=== PATIENT | male | born 1990 | race American Indian/Alaskan Native ===

== ENCOUNTER 2020-03-28 00:04 | Emergency (ER) | payer SELFPAY ==
--- NOTE | 2020-03-28 01:53 | XRay Report ---
CHEST PA AND LATERAL VIEWS INDICATION: Hematemesis. COMPARISON: None. FINDINGS: Support devices: None. Heart: Within normal limits. Lungs/Pleura: No acute pulmonary or pleural findings. IMPRESSION: 1. No acute findings. Signer Name: Isauro Camacho MD Signed: 03/28/2020 1:48 AM Workstation Name: [id number]
[2020-03-28] MEDS ORDERED: HALOPERIDOL LACTATE 5 MG/1 ML INJ IM ONE (02:15)
[2020-03-28] MEDS ORDERED: FAMOTIDINE 20 MG/2 ML INJ IV ONE (02:15)
[2020-03-28] MEDS ORDERED: LORazepam 2 MG/ML VIAL IV PRN ×3 (02:15)
[2020-03-28] MEDS ORDERED: diazePAM 10 MG/2 ML SYRINGE IV ONE (02:15)
--- NOTE | 2020-03-28 02:22 | Emergency Department Report ---
ED General Adult HPI - General Chief complaint: GI Bleed Stated complaint: WEAKNESS PUI?: No Time Seen by Provider: 03/28/20 02:05 Source: patient, EMS ( EMS documentation not available at time of chart dictation ), RN notes reviewed Mode of arrival: Stretcher Limitations: No Limitations - History of Present Illness Initial comments: Patient is a 29-year-old gentleman He has a history of alcoholism and alcohol use. He does not have a local primary care doctor. He presents to the ER with rapid heartbeat, racing thoughts, vomiting blood, diffuse abdominal cramping and body pain. His last alcoholic drink was 4 days ago. He has withdrawn from alcohol in the past. He is not homicidal or suicidal. At the moment, he is anxious and nauseous. He denies rectal bleeding. He denies focal extremity weakness and numbness. He endorses body pain. At the moment his symptoms are constant, do not radiate anywhere, and he does not describe exacerbating or relieving factors -: Gradual Location: abdomen, left, right, upper extremity, lower extremity Quality: aching Consistency: constant Improves with: rest Worsens with: movement - Related Data Previous Rx's Medication Instructions Recorded Last Taken Type Multivitamin with Folic Acid [[facility] 400 mcg PO QDAY #30 tablet 03/28/20 Unknown Rx One Daily Essential Tablet] Ondansetron [Zofran Odt] 4 mg PO Q8HR PRN #20 tab.rapdis 03/28/20 Unknown Rx Pantoprazole [Protonix TAB] 20 mg PO QDAY #30 tablet. 03/28/20 Unknown Rx Potassium Chloride 20 meq PO QDAY #14 packet 03/28/20 Unknown Rx chlordiazePOXIDE [Librium] 25 mg PO Q6H PRN #25 capsule 03/28/20 Unknown Rx Allergies Allergy/AdvReac Type Severity Reaction Status Date / Time No Known Allergies Allergy Unverified 03/28/20 01:17 ED Review of Systems ROS: Stated complaint: WEAKNESS Other details as noted in HPI Constitutional: denies: fever Eyes: denies: eye discharge ENT: denies: epistaxis Respiratory: denies: cough Cardiovascular: palpitations. denies: chest pain Gastrointestinal: nausea, vomiting, hematemesis. denies: melena, hematochezia Genitourinary: denies: dysuria Musculoskeletal: arthralgia, myalgia Psychiatric: anxiety. denies: homicidal thoughts, suicidal thoughts ED Past Medical Hx - Past Medical History Previous Medical History?: No - Surgical History Past Surgical History?: No - Social History Smoking Status: Current Every Day Smoker Substance Use Type: Alcohol - Medications Home Medications: Home Medications Medication Instructions Recorded Confirmed Last Taken Type Multivitamin with Folic Acid [[facility] 400 mcg PO QDAY #30 tablet 03/28/20 Unknown Rx One Daily Essential Tablet] Ondansetron [Zofran Odt] 4 mg PO Q8HR PRN #20 tab.rapdis 03/28/20 Unknown Rx Pantoprazole [Protonix TAB] 20 mg PO QDAY #30 tablet.dr 03/28/20 Unknown Rx Potassium Chloride 20 meq PO QDAY #14 packet 03/28/20 Unknown Rx chlordiazePOXIDE [Librium] 25 mg PO Q6H PRN #25 capsule 03/28/20 Unknown Rx ED Physical Exam - General Limitations: No Limitations General appearance: alert, anxious, in distress - Head Head exam: Present: atraumatic, normocephalic - Eye Eye exam: Present: normal appearance, EOMI - ENT ENT exam: Present: normal exam, mucous membranes dry, normal external ear exam, other (Tongue fasciculations noted) - Neck Neck exam: Present: normal inspection. Absent: tenderness, meningismus - Respiratory Respiratory exam: Present: normal lung sounds bilaterally. Absent: respiratory distress, wheezes, rales, rhonchi, stridor - Cardiovascular Cardiovascular Exam: Present: normal rhythm, tachycardia. Absent: systolic murmur, diastolic murmur, rubs, gallop - GI/Abdominal GI/Abdominal exam: Present: soft, normal bowel sounds. Absent: distended, tenderness, guarding, rebound, rigid, pulsatile mass - Rectal Rectal exam: Present: normal inspection, heme (-) stool, other (Chaperoned by nurse Guerline Rosario). Absent: heme (+) stool, black stool, bloody stool, fecal impaction, hemorrhoids, mass, tenderness, prostate tenderness, prostate enlargement - Extremities Exam Extremities exam: Present: normal inspection, full ROM, other (2+ pulses noted in the bilateral upper and lower extremities. There is no palpable cord. negative Homans sign. Muscular compartments are soft. The pelvis is stable.). Absent: pedal edema, calf tenderness - Back Exam Back exam: Present: normal inspection, full ROM. Absent: tenderness, CVA tenderness (R), CVA tenderness (L), paraspinal tenderness, vertebral tenderness - Neurological Exam Neurological exam: Present: alert, oriented X3, normal gait, other (No facial droop. Tongue midline. Extraocular movements intact bilaterally. Facial sensation intact to light touch in V1, V2, V3 distribution bilaterally. 5 and a 5 strength in 4 extremities. Sensation intact to light touch in 4 extremities.). Absent: motor sensory deficit - Psychiatric Psychiatric exam: Present: agitated, anxious. Absent: homicidal ideation, suicidal ideation - Skin Skin exam: Present: warm, dry, intact, normal color. Absent: rash ED Course Vital Signs 03/28/20 03/28/20 03/28/20 00:37 02:12 02:15 Temperature 99.0 F Pulse Rate 132 H 137 H 127 H Respiratory 18 20 21 Rate Blood Pressure 188/114 171/90 168/106 Blood Pressure [Left] O2 Sat by Pulse 99 98 98 Oximetry 03/28/20 03/28/20 03/28/20 02:30 02:45 03:04 Temperature Pulse Rate 125 H 124 H Respiratory 19 20 20 Rate Blood Pressure 145/99 151/104 Blood Pressure [Left] O2 Sat by Pulse 99 99 Oximetry 03/28/20 03/28/20 03/28/20 03:10 03:16 03:30 Temperature Pulse Rate 92 H Respiratory 18 Rate Blood Pressure 171/90 171/90 171/90 Blood Pressure [Left] O2 Sat by Pulse 99 99 98 Oximetry 03/28/20 03/28/20 03/28/20 03:45 04:00 04:08 Temperature Pulse Rate 90 87 Respiratory 19 19 18 Rate Blood Pressure 137/85 125/78 Blood Pressure 125/78 [Left] O2 Sat by Pulse 98 98 Oximetry 03/28/20 03/28/20 03/28/20 04:15 04:30 04:45 Temperature Pulse Rate 86 88 91 H Respiratory 19 20 20 Rate Blood Pressure 138/89 125/85 126/89 Blood Pressure [Left] O2 Sat by Pulse Oximetry 03/28/20 03/28/20 03/28/20 05:00 05:15 05:30 Temperature Pulse Rate 89 86 80 Respiratory 19 17 15 Rate Blood Pressure 123/84 128/84 121/77 Blood Pressure [Left] O2 Sat by Pulse Oximetry 03/28/20 03/28/20 03/28/20 05:45 06:00 06:15 Temperature Pulse Rate 87 88 90 Respiratory 18 18 14 Rate Blood Pressure 120/77 117/80 127/86 Blood Pressure [Left] O2 Sat by Pulse Oximetry 03/28/20 03/28/20 03/28/20 06:30 06:45 07:00 Temperature Pulse Rate 82 81 81 Respiratory 18 16 18 Rate Blood Pressure 117/81 116/79 114/79 Blood Pressure [Left] O2 Sat by Pulse Oximetry 03/28/20 03/28/20 03/28/20 07:15 07:30 07:46 Temperature Pulse Rate 82 82 83 Respiratory 15 17 17 Rate Blood Pressure 117/81 122/78 122/78 Blood Pressure [Left] O2 Sat by Pulse Oximetry 03/28/20 03/28/20 03/28/20 08:00 08:16 08:30 Temperature Pulse Rate 97 H 80 75 Respiratory 19 18 16 Rate Blood Pressure 125/82 125/82 111/73 Blood Pressure [Left] O2 Sat by Pulse Oximetry 03/28/20 03/28/20 03/28/20 08:46 09:00 09:16 Temperature Pulse Rate 84 74 74 Respiratory 15 15 16 Rate Blood Pressure 111/73 110/68 110/68 Blood Pressure [Left] O2 Sat by Pulse Oximetry 03/28/20 03/28/20 03/28/20 09:30 09:46 10:00 Temperature Pulse Rate 77 73 74 Respiratory 16 15 15 Rate Blood Pressure 116/82 116/82 120/78 Blood Pressure [Left] O2 Sat by Pulse Oximetry 03/28/20 03/28/20 10:16 10:30 Temperature Pulse Rate 85 97 H Respiratory 18 18 Rate Blood Pressure 120/78 120/78 Blood Pressure [Left] O2 Sat by Pulse Oximetry - Reevaluation(s) Reevaluation #1: 03/28/20 02:42 Differential diagnosis, including but not limited to: Alcohol withdrawal, dehydration, electrolyte derangement, [place] tear, GERD, gastritis Assessment and plan: 29-year-old gentleman with tachycardia, tongue fasciculations, anxiety, nausea vomiting, suspicious for alcohol withdrawal, with probable [place] tear. His laboratory studies are reviewed and appreciated. Patient to be placed on alcohol withdrawal protocol. EKG, abdominal exam, rectal exam to be performed after administration of Valium and haloperidol as well as dextrose fluids. He does not meet criteria for 1013 at this time. Reevaluation #2: 03/28/20 03:51 Reassessment. Tachycardia resolved. Rate 88 bpm. Belly soft on my exam. Rectal negative, guaiac negative, no gross blood, patient indicates his symptoms have resolved. Serum laboratory studies are reviewed and appreciated. Patient will be discharged with Librium, multivitamins, potassium, magnesium supplementation, as needed nausea medication, and we will provide him with outpatient resources for alcohol cessation. Reevaluation #3: 03/28/20 04:00 repeat ciwa score is 1 ED Medical Decision Making - Lab Data Result diagrams: 03/28/20 01:26 03/28/20 01:26 Vital Signs 03/28/20 03/28/20 00:37 02:12 Temperature 99.0 F Pulse Rate 132 H 137 H Respiratory 18 20 Rate Blood Pressure 188/114 171/90 O2 Sat by Pulse 99 98 Oximetry Lab Results 03/28/20 03/28/20 03/28/20 Range/Units 01:26 01:26 01:26 WBC 8.8 (4.5-11.0) K/mm3 RBC 5.75 H (3.65-5.03) M/mm3 Hgb 13.1 (11.8-15.2) gm/dl Hct 40.9 (35.5-45.6) % MCV 71 L (84-94) fl MCH 23 L (28-32) pg MCHC 32 (32-34) % RDW 21.4 H (13.2-15.2) % Plt Count 195 (140-440) K/mm3 Lymph % (Auto) 15.9 (13.4-35.0) % Quay % (Auto) 6.1 (0.0-7.3) % Eos % (Auto) 0.3 (0.0-4.3) % Baso % (Auto) 0.5 (0.0-1.8) % Lymph # 1.4 (1.2-5.4) K/mm3 Quay # 0.5 (0.0-0.8) K/mm3 Eos # 0.0 (0.0-0.4) K/mm3 Baso # 0.0 (0.0-0.1) K/mm3 Seg Neutrophils % 77.2 H (40.0-70.0) % Seg Neutrophils # 6.8 (1.8-7.7) K/mm3 Sodium 139 (137-145) mmol/L Potassium 3.0 L (3.6-5.0) mmol/L Chloride 93.4 L (98-107) mmol/L Carbon Dioxide 27 (22-30) mmol/L Anion Gap 22 mmol/L BUN 9 (9-20) mg/dL Creatinine 0.9 (0.8-1.5) mg/dL Estimated GFR > 60 ml/min BUN/Creatinine Ratio 10 % Glucose 125 H (75-100) mg/dL Calcium 9.0 (8.4-10.2) mg/dL Magnesium 2.00 (1.7-2.3) mg/dL Total Bilirubin 0.40 (0.1-1.2) mg/dL AST 52 H (5-40) units/L ALT 33 (7-56) units/L Alkaline Phosphatase 111 (35-129) units/L Total Creatine Kinase 684 H (55-170) units/L Total Protein 7.9 (6.3-8.2) g/dL Albumin 4.6 (3.9-5) g/dL Albumin/Globulin Ratio 1.4 % Lipase 68 H (13-60) units/L Salicylates (2.8-20.0) mg/dL Plasma/Serum Alcohol (0-0.07) % 03/28/20 03/28/20 Range/Units 01:26 01:26 WBC (4.5-11.0) K/mm3 RBC (3.65-5.03) M/mm3 Hgb (11.8-15.2) gm/dl Hct (35.5-45.6) % MCV (84-94) fl MCH (28-32) pg MCHC (32-34) % RDW (13.2-15.2) % Plt Count (140-440) K/mm3 Lymph % (Auto) (13.4-35.0) % Quay % (Auto) (0.0-7.3) % Eos % (Auto) (0.0-4.3) % Baso % (Auto) (0.0-1.8) % Lymph # (1.2-5.4) K/mm3 Quay # (0.0-0.8) K/mm3 Eos # (0.0-0.4) K/mm3 Baso # (0.0-0.1) K/mm3 Seg Neutrophils % (40.0-70.0) % Seg Neutrophils # (1.8-7.7) K/mm3 Sodium (137-145) mmol/L Potassium (3.6-5.0) mmol/L Chloride (98-107) mmol/L Carbon Dioxide (22-30) mmol/L Anion Gap mmol/L BUN (9-20) mg/dL Creatinine (0.8-1.5) mg/dL Estimated GFR ml/min BUN/Creatinine Ratio % Glucose (75-100) mg/dL Calcium (8.4-10.2) mg/dL Magnesium (1.7-2.3) mg/dL Total Bilirubin (0.1-1.2) mg/dL AST (5-40) units/L ALT (7-56) units/L Alkaline Phosphatase (35-129) units/L Total Creatine Kinase (55-170) units/L Total Protein (6.3-8.2) g/dL Albumin (3.9-5) g/dL Albumin/Globulin Ratio % Lipase (13-60) units/L Salicylates 15.8 (2.8-20.0) mg/dL Plasma/Serum Alcohol < 0.01 (0-0.07) % - EKG Data -: EKG Interpreted by Mn EKG shows normal: sinus rhythm Rate: tachycardia - EKG Data When compared to previous EKG there are: previous EKG unavailable 03/28/20 03:53 There is no prior EKG available for comparison. Sinus rhythm, tachycardia, 101 bpm. Normal axis, QTC is prolonged, high left ventricular voltage. This EKG is not a STEMI. It is abnormal. There is no prior for comparison. - Radiology Data Radiology results: report reviewed, image reviewed Print Report Referring Physician: LOURDES SAMANIEGO Patient Name: GURU JARAMILLO Date of : 1990 Sex: Male Report Date: 2020-03-28 Report Status: Finalized Findings [facility] [address] [place] [address] XRay Report Signed Patient: GURU JARAMILLO MR#: [id number] : 1990 Acct:[id number] Age/Sex: 29 / M ADM Date: 03/28/20 Loc: ED Attending Dr: Ordering Physician: LOURDES SAMANIEGO MD Date of Service: 03/28/20 Procedure(s): XR chest routine 2V Accession Number(s): [id number] cc: LOURDES SAMANIEGO MD Fluoro Time In Minutes: CHEST PA AND LATERAL VIEWS INDICATION: Hematemesis. COMPARISON: None. FINDINGS: Support devices: None. Heart: Within normal limits. Lungs/Pleura: No acute pulmonary or pleural findings. IMPRESSION: 1. No acute findings. Signer Name: Isauro Camacho MD Signed: 03/28/2020 1:48 AM Workstation Name: [id number] Transcribed By: BOB Dictated By: Isauro Camacho MD Electronically Authenticated By: Isauro Camacho MD Signed Date/Time: 03/28/20147 DD/ 7 TD/TT: X-ray of the abdomen is negative for acute disease Critical Care Time: Yes Critical care time in (mins) excluding proc time.: 35 Critical care attestation.: If time is entered above; I have spent that time in minutes in the direct care of this critically ill patient, excluding procedure time. ED Disposition Clinical Impression: History of hematemesis, Hypokalemia Alcohol withdrawal Qualifiers: Complication of substance-induced condition: with unspecified complication Qualified Code(s): F10.239 - Alcohol dependence with withdrawal, unspecified Disposition: DC-01 TO HOME OR SELFCARE Is pt being admited?: No Does the pt Need Aspirin: No Condition: Stable Instructions: Alcohol Withdrawal (ED) Additional Instructions: Minimize/avoid consumption of alcohol and recreational drugs. Do not take Motrin, ibuprofen, Naprosyn, Aleve. Minimize consumption of heavy and/or spicy foods. Eat plenty of fiber, vegetables, lean protein. Use the Librium medication as needed for sensation of tremors, agitation, alcohol withdrawal. Take the Zofran medication as needed for nausea and vomiting. Take the potassium supplementation as directed. Take the Protonix as directed. Take the multivitamin as directed. Follow-up with an outpatient primary care doctor and/or frame feeder within the next 10 days. Long-term consumption of alcohol may cause addiction, disability, organ failure, or even in extreme cases. Therefore, recommend that patient avoid consumption of alcohol. Patient may also follow-up with outpatient detox resources if he so desires alcohol detox. Return to the emergency room right away with new pain, worsening pain, migration of pain, Projectile vomiting, change in mental status, confusion, inability to tolerate liquid feeds. Drink 4 to 6 cups of water per day indefinitely. Prescriptions: Multivitamin with Folic Acid [[facility]vs One Daily Essential Tablet] 400 mcg PO QDAY #30 tablet chlordiazePOXIDE [Librium] 25 mg PO Q6H PRN #25 capsule PRN Reason: Alcohol Withdrawal Potassium Chloride 20 meq PO QDAY #14 packet Pantoprazole [Protonix TAB] 20 mg PO QDAY #30 tablet. Ondansetron [Zofran Odt] 4 mg PO Q8HR PRN #20 tab.rapdis PRN Reason: Nausea Referrals: JOLENE SAAVEDRA MD [Staff Physician] - 3-5 Days [facility] [Provider Group] - 3-5 Days Forms: Accompanied Note
[2020-03-28 02:33] LABS: Basophils % (Auto) 0.5 % (0.0-1.8); Eosinophils % (Auto) 0.3 % (0.0-4.3); Hematocrit 40.9 % (35.5-45.6); Hemoglobin 13.1 gm/dl (11.8-15.2); Lymphocytes # (Auto) 1.4 K/mm3 (1.2-5.4); Lymphocytes % (Auto) 15.9 % (13.4-35.0); Mean Corpuscular HGB Conc 32 % (32-34); Mean Corpuscular Volume 71 fl (84-94); Monocytes # (Auto) 0.5 K/mm3 (0.0-0.8); Monocytes % (Auto) 6.1 % (0.0-7.3); Platelet Count 195 K/mm3 (140-440); Red Blood Count 5.75 M/mm3 (3.65-5.03)
[2020-03-28 02:34] LABS: Red Cell Distribution Width 21.4 % (13.2-15.2)
[2020-03-28 02:38] LABS: Alanine Aminotransferase 33 units/L (7-56); Albumin 4.6 g/dL (3.9-5); BUN/Creatinine Ratio 10; Blood Urea Nitrogen 9 mg/dL (9-20); Hemolysis Index 4
[2020-03-28 02:41] LABS: INR 0.99 (0.87-1.13)
[2020-03-28 02:44] LABS: Partial Thromboplastin Time 25.9 Sec. (24.2-36.6)
[2020-03-28] MEDS ORDERED: D5W/0.45% NACL 1,000 ML IV SCH (03:00)
--- NOTE | 2020-03-28 03:24 | XRay Report ---
SUPINE ABDOMEN 2 IMAGES INDICATION: Hematemesis. COMPARISON: No relevant prior imaging study available. FINDINGS: No free air is seen. No dilated loops of small bowel. No abnormal calcifications. IMPRESSION: 1. No acute findings. Signer Name: Isauro Camacho MD Signed: 03/28/2020 3:19 AM Workstation Name: [id number]
[2020-03-28] MEDS: POTASSIUM CHLORIDE 10 MEQ 10 MEQ/100 ML BAG IV SCH ×4 (03:34→07:55)
[2020-03-28 10:32] VITALS: BP 120/78
== END 2020-03-28 10:30 | disposition home or self-care (01) ==
LOC: ED 00:04
DX: K92.0 Hematemesis (principal); E87.6 Hypokalemia; F10.239 Alcohol dependence with withdrawal, unspecified; F17.200 Nicotine dependence, unspecified, uncomplicated; F41.9 Anxiety disorder, unspecified
CPT/HCPCS: 36415; 71046; 74019; 80053; 82550; 83690; 83735; 85025; 85610; 85730; 93005; 96361; 96372; 96374; 96375; 99285; J1630; J2060; J3360; J3480; 80320; G0480